=== PATIENT | female | born 1990 | race Caucasian/White ===

== ENCOUNTER 2017-05-19 07:35 | Emergency (ER) | payer SELFPAY ==
[2017-05-19 07:52] VITALS: RESP 16; TEMP 97.8
--- NOTE | 2017-05-19 08:00 | PDOC ---
Sore Throat/Dental Pain [facility] - General Chief Complaint: Nasal/Mouth Problem /Injury Stated Complaint: RIGHT LOWER JAW PAIN/DENTAL PAIN - Patient Home Medications Home Medications: Home Medications Ferrous Sulfate [Feosol Tab] 325 mg PO BID #60 tab 07/18/15 Hydrocodone/Acetaminophen [Hydrocodon-Acetaminophen 5-325] 1 tab PO Q4-6H #20 tab 03/06/17 Cyclobenzaprine HCl 1 tab PO BID #60 tab 03/18/17 Amoxicillin Trihydrate [Amoxicillin] 875 mg PO BID #20 cap 04/17/17 Hydrocodone Bit/Acetaminophen [[place] 5-325 Tablet] 1 tab PO Q4-6H #30 tab HYDROcodone/APAP 10/325 Tab [[place] 10/325 Tab] 1 tab PO Q4H PRN #25 tab Penicillin V Potassium 500 mg PO Q6H #40 tab 05/19/17 - Patient Allergies Allergies/Adverse Reactions: Allergies Allergy/AdvReac Type Severity Reaction Status Date / Time No Known Drug Allergies Allergy NOT Unverified 12/19/15 16:00 APPLICABLE Past Medical History - heen HEENT History: Denies History Cardiovascular History: Denies History Respiratory History: Denies History Gastrointestinal History: Denies History Genitourinary History: Denies History Endocrine History: Denies History Musculoskeletal History: Joint Pain Neurological History: Denies History Blood Disorders: Denies History Psychiatric History: Denies History History of Sexually Transmitted Diseases: No Obstetrical History: Denies History Cancer History: Denies History In Past Year Been Physically Harmed or Verbally Threatened: No History of MDRO: No History of Other Communicable Diseases: No Tobacco Use: Current Every Day Smoker Alcohol Use: None Substance Use Type: None Previous Surgical History: No Anesthesia Reactions: No Malignant Hyperthermia: No Significant Family History: No pertinent family hx Vital Signs - Recent Vital Signs Vital Signs: Vital Signs (Last 8 hours) Temp Pulse Resp BP Pulse Ox 05/19/17 07:39 97.8 F 112 H 16 138/90 100 Discharge Clinical Impression: Dental abscess Discharge Disposition: Discharged to Home Condition: Stable Prescriptions / Orders: HYDROcodone/APAP 10/325 Tab [[place] 10/325 Tab] 1 tab PO Q4H PRN #25 tab PRN Reason: Pain Penicillin V Potassium 500 mg PO Q6H #40 tab Patient Instructions Given at Discharge: Dental Abscess (ED), Toothache (ED) Additional Instructions: Pen-Vee K, one 4 times daily for 10 days. Hydrocodone/APAP, one every 4 hours as necessary for pain. Follow-up with your dentist in a few days. Return here anytime if condition worsens in any way. Follow Up With: NONE,NONE [Primary Care Provider] - (Instructions as above. Follow-up with your dentist as soon as possible. Return here anytime if condition worsens in any way.)
--- NOTE | 2017-05-19 08:12 | PDOC ---
Sore Throat/Dental Pain HPI - General Chief Complaint: Nasal/Mouth Problem /Injury Stated Complaint: RIGHT LOWER JAW PAIN/DENTAL PAIN Date Seen by Provider: 05/19/17 Time Seen by Provider: 07:44 Source: POSITIVE: Patient Exam Limitations: POSITIVE: No limitations Nurse's Notes Reviewed & Considered: Yes - History of Present Illness Initial Comments: The patient is a 26-year-old female. She states that for the past 2 days she has had pain to her right lower molars. She states that she "broke a tooth off "2 days ago. Patient has not had any fevers or chills. No difficulty breathing or swallowing. Some mild facial swelling over the left mandible. Patient smokes about a half a pack of cigarettes per day. Location: Dental (Lower) Timing: REPORTS: Abrupt Duration: >24 hours (Approximately 48 hours) Severity: Moderate Quality: REPORTS: "Pain" Context: REPORTS: Fractured Tooth (Right lower molar) Modifying Factors: improves with: Rest Associated Symptoms: REPORTS: Toothache. DENIES: Unable to Swallow, Fever, Chills, Runny Nose, Congestion, Facial Pain, Earache, Swollen Jaw, Swollen Face , Sore Throat, Jaw Pain, Cough, Swollen Glands, Other Similar Symptoms Previously: No Recently seen/treated/hospitalized: No Any Prior Injuries Related to Current Complaint?: No - Patient Home Medications Home Medications: Home Medications Ferrous Sulfate [Feosol Tab] 325 mg PO BID #60 tab 07/18/15 Hydrocodone/Acetaminophen [Hydrocodon-Acetaminophen 5-325] 1 tab PO Q4-6H #20 tab 03/06/17 Cyclobenzaprine HCl 1 tab PO BID #60 tab 03/18/17 Amoxicillin Trihydrate [Amoxicillin] 875 mg PO BID #20 cap 04/17/17 Hydrocodone Bit/Acetaminophen [[place] 5-325 Tablet] 1 tab PO Q4-6H #30 tab HYDROcodone/APAP 10/325 Tab [[place] 10/325 Tab] 1 tab PO Q4H PRN #25 tab Penicillin V Potassium 500 mg PO Q6H #40 tab 05/19/17 - Patient Allergies Allergies/Adverse Reactions: Allergies Allergy/AdvReac Type Severity Reaction Status Date / Time No Known Drug Allergies Allergy NOT Unverified 12/19/15 16:00 APPLICABLE Past Medical History - heen HEENT History: Denies History Cardiovascular History: Denies History Respiratory History: Denies History Gastrointestinal History: Denies History Genitourinary History: Denies History Endocrine History: Denies History Musculoskeletal History: Joint Pain Neurological History: Denies History Blood Disorders: Denies History Psychiatric History: Denies History History of Sexually Transmitted Diseases: No Obstetrical History: Denies History Cancer History: Denies History In Past Year Been Physically Harmed or Verbally Threatened: No History of MDRO: No History of Other Communicable Diseases: No Tobacco Use: Current Every Day Smoker Alcohol Use: None Substance Use Type: None Previous Surgical History: No Anesthesia Reactions: No Malignant Hyperthermia: No Significant Family History: No pertinent family hx Past Medical History Reviewed: Reviewed - No Changes ROS - Limitations ROS Limitations: No Limitations Constitution: REPORTS: Denies Symptoms Cardiovascular: REPORTS: Denies Cardiac Symptoms Respiratory: REPORTS: Denies Resp Symptoms Neurological: REPORTS: Denies Neuro Symptoms Gastrointestinal: REPORTS: Denies GI Symptoms Endocrine: REPORTS: Denies Symptoms Musculoskeletal: REPORTS: Denies MS Symptoms Genitourinary: REPORTS: Denies Symptoms Eyes: REPORTS: Denies Symptoms ENT: REPORTS: Dental Pain. DENIES: Earache, Ear Discharge, Hearing Loss, Vertigo, Nose Pain, Nose Bleed, Congestion, Nasal Drainage, Sinus Problem, Sore Throat, Trouble Swallowing, Tongue Swelling, Throat Swelling, Lip Swelling Skin: REPORTS: Denies Skin Symptoms Lympathic: REPORTS: Denies Lympathic Symptoms Immunologic: POSITIVE: Denies Symptoms Psychiatric: POSITIVE: Denies Psych Symptoms Sore Throat/Dental Pain Exam - General Appearance General Appearance: REPORTS: Alert, Cooperative, No Acute Distress, No Evidence of Trauma - HEENT Head / Face: POSITIVE: Atraumatic, Normal Inspection. NEGATIVE: No Facial Swelling (Mild facial swelling, no erythema, posterior aspect of right mandible) Eyes: POSITIVE: Inspection Normal, PERRL, EOM's Intact, Eyelids Uninjured, Conjunctivae Uninjured, No Nystagmus, No Globe Trauma, Sclera Normal, Normal Corneal Inspection Ears: POSITIVE: Ears Normal Inspection, TM Normal Inspection, Auricle Normal, External Canal Normal Nose: POSITIVE: Inspection Normal, No Apparent Trauma, Nares Normal, No CSF Leak Oropharynx: POSITIVE: External Inspection Nml, Pharynx Inspect. Nml, Airway Intact, Voice Normal, Moist Mucous Membranes, No Oral Injury, Lips Normal, No Drooling, No Thrush, Normal Gag Reflex, Gum Swelling (As above), Tenderness ( Right first and second lower molars). NEGATIVE: Gums Normal (Swelling of gingiva had base of the right first and second molars) Neck: POSITIVE: Supple, Normal Inspection, Non Tender Dental: POSITIVE: Dental Tenderness, Widespread Dental Decay (Right lower first and second molars. 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, Motor Normal, Sensation Normal Images - Dental Dental: 1 - Dental decay 2 - Dental decay 3 - Tender on percussion was swelling of gingiva at base of teeth compatible with abscess Sore Throat/Dental Progress - Patient's Progress Pain Medication Addressed: POSITIVE: Yes (Hydrocodone/APAP, one every 4 hours as necessary for pain) School/Work Release Addressed: POSITIVE: Not Applicable Re-Examine Time:: 08:00 Status: POSITIVE: Unchanged - Consult Counseled: POSITIVE: Patient, RE: DX, RE: Need for F/U Patient Care Time - Estimated PCT Patient Care Time (In Minutes): 22 Vital Signs - Recent Vital Signs Vital Signs: Vital Signs (Last 8 hours) Temp Pulse Resp BP Pulse Ox 05/19/17 07:39 97.8 F 112 H 16 138/90 100 - VS Reviewed Vital Signs Reviewed: Yes Discharge Clinical Impression: Dental abscess Discharge Disposition: Discharged to Home Condition: Stable Prescriptions / Orders: HYDROcodone/APAP 10/325 Tab [[place] 10/325 Tab] 1 tab PO Q4H PRN #25 tab PRN Reason: Pain Penicillin V Potassium 500 mg PO Q6H #40 tab Patient Instructions Given at Discharge: Dental Abscess (ED), Toothache (ED) Additional Instructions: Pen-Vee K, one 4 times daily for 10 days. Hydrocodone/APAP, one every 4 hours as necessary for pain. Follow-up with your dentist in a few days. Return here anytime if condition worsens in any way. Follow Up With: NONE,NONE [Primary Care Provider] - (Instructions as above. Follow-up with your dentist as soon as possible. Return here anytime if condition worsens in any way.)
== END 2017-05-19 08:08 | disposition home or self-care (01) ==
LOC: ER 07:35
DX: K04.7 Periapical abscess without sinus (principal); K08.89 Other specified disorders of teeth and supporting structures; S02.5XXA Fracture of tooth (traumatic), initial encounter for closed fracture
CPT/HCPCS: 99282